=== PATIENT | male | born 1950 | race Caucasian/White ===

== ENCOUNTER 2021-01-04 22:15 | Emergency (ER) | payer MEDICARE, OTHER ==
[~2021-01-04 22:15] MED LIST: NORVASC10 MG PO
[2021-01-04 23:15] LABS: HEMOGLOBIN 17.6 gm/dl (14.0-17.5); RED BLOOD COUNT 5.39 M/UL (4.20-5.50); WHITE BLOOD COUNT 8.7 K/UL (4.5-11.0)
[2021-01-04 23:35] LABS: BUN/CREATININE RATIO 19 (0-10)
[2021-01-05] MEDS ORDERED: K-DUR TAB 20 M20 MEQ PO (03:22)
== END 2021-01-05 03:50 | disposition home or self-care (01) ==
LOC: ER1 22:15
PROVIDERS: Emergency Medicine
DX: E86.0 Dehydration (principal); I10 Essential (primary) hypertension; Z20.822 Contact with and (suspected) exposure to COVID-19; Z90.89 Acquired absence of other organs
CPT/HCPCS: 0240U; 70450; 71045; 80053; 81001; 82550; 82553; 83605; 83690; 83735; 83874; 83880; 84439; 84443; 84484; 85025; 85379; 99285; Q9967

== ENCOUNTER 2021-10-30 22:16 | Emergency (ER) | payer MEDICARE, OTHER ==
[~2021-10-30 22:16] MED LIST changes: +K-DUR TAB 20 M20 MEQ PO
[2021-10-30 22:38] LABS: HEMOGLOBIN 17.1 gm/dl (14.0-17.5); RED BLOOD COUNT 5.25 M/UL (4.20-5.50); WHITE BLOOD COUNT 6.9 K/UL (4.5-11.0)
[2021-10-30 23:09] LABS: BUN/CREATININE RATIO 18 (0-10)
== END 2021-10-31 03:11 | disposition home or self-care (01) ==
LOC: ER1 22:16
PROVIDERS: Physician Assistant
DX: I10 Essential (primary) hypertension (principal); R00.2 Palpitations; E83.41 Hypermagnesemia
CPT/HCPCS: 71045; 80053; 82550; 82553; 83735; 83874; 84439; 84443; 84484; 85025; 93005; 99285

== ENCOUNTER → 2022-02-27 | Outpatient (CLI) | payer MEDICARE, OTHER | LOC: HEART 5 02-10 14:00 | DX: I49.3 Ventricular premature depolarization (principal); R06.02 Shortness of breath; R00.2 Palpitations; I27.20 Pulmonary hypertension, unspecified; I08.1 Rheumatic disorders of both mitral and tricuspid valves | CPT/HCPCS: 93306 ==